=== PATIENT | male | born 1995 | race Caucasian/White ===

== ENCOUNTER 2021-06-23 07:28 | Emergency (ER) | payer BC ==
--- NOTE | 2021-06-23 08:04 | EDM.PDOC ---
ED HPI GENERAL MEDICAL PROBLEM - General Chief Complaint: Abdominal Pain Stated Complaint: POSS. HERNIA Time Seen by Provider: 06/23/21 07:54 Source of Information: Reports: Patient, RN Notes Reviewed History Limitations: Reports: No Limitations - History of Present Illness INITIAL COMMENTS - FREE TEXT/NARRATIVE: 26-year-old gentleman presents emergency department today complaint of abdominal pain, he states has had this for about a week he had a significant coughing episode and then he experienced some pain in his left groin. He is concerned he may have a hernia. He states he is doing well today and has no pain he is more interested in just having this checked out. No nausea vomiting shortness of breath or chest pain no history of abdominal surgeries - Related Data Allergies Allergy/AdvReac Type Severity Reaction Status Date / Time Penicillins Allergy Rash Verified 06/23/21 07:45 Home Meds: Home Meds NK [No Known Home Meds] 06/23/21 [History] Past Medical History Musculoskeletal History: Reports: Fracture - Past Surgical History HEENT Surgical History: Reports: Other (See Below) Other HEENT Surgeries/Procedures: throat Social & Family History - Tobacco Use Tobacco Use Status *Q: Never Tobacco User ED ROS GENERAL - Review of Systems Review Of Systems: See Below Constitutional: Reports: No Symptoms Respiratory: Reports: No Symptoms Cardiovascular: Reports: No Symptoms GI/Abdominal: Reports: Abdominal Pain, Constipation, Flatus. Denies: Nausea, Vomiting ED EXAM, GI/ABD - Physical Exam Exam: See Below Exam Limited By: No Limitations General Appearance: Alert, WD/WN, No Apparent Distress Respiratory/Chest: No Respiratory Distress GI/Abdominal Exam: Normal Bowel Sounds, Soft, Non-Tender, No Distention Course - Vital Signs Last Recorded V/S: Last Vital Signs Temp 97.3 F 06/23/21 07:46 Pulse 70 06/23/21 07:46 Resp 15 06/23/21 07:46 BP 118/71 06/23/21 07:46 Pulse Ox 96 06/23/21 07:46 Departure - Departure Time of Disposition: 08:03 Disposition: Home, Self-Care 01 Condition: Fair Clinical Impression: Abdominal pain Qualifiers: Abdominal location: left lower quadrant Qualified Code(s): R10.32 - Left lower quadrant pain - Discharge Information Instructions: Abdominal Pain, Adult, [id number] Referrals: PCP,None [Primary Care Provider] - Additional Instructions: Please call to the [facility] on Saturday morning for an appointment time with Dr. Kaur, call or return to the emergency department worsening of symptoms Sepsis Event Note (ED) - Evaluation Sepsis Screening Result: No Definite Risk - Focused Exam Vital Signs: Vital Signs Temp Pulse Resp BP Pulse Ox 06/23/21 07:46 97.3 F 70 15 118/71 96 06/23/21 07:44 97.3 F 70 15 118/71 96 - Assessment/Plan Plan: Assessment Acuity = acute Site and laterality = abdominal pain concern for hernia left inguinal region Etiology = unknown Manifestations = none Location of injury = Home Lab values = none Plan Because he is stable at this time not having any pain when I palpate elected to do watchful waiting I did set him up with a consultation with general surgery for further evaluation of possibility of inguinal hernia in the left canal This note was dictated using Handshake voice recognition software please call with any questions on syntax or grammar.
== END 2021-06-23 08:10 | disposition home or self-care (01) ==
LOC: JP.ED 07:28
DX: R10.32 Left lower quadrant pain (principal); Z88.0 Allergy status to penicillin
CPT/HCPCS: 99283